=== PATIENT | female | born 1970 | race Hispanic/Latino ===

== ENCOUNTER → 2023-05-04 | Emergency (ER) | payer SELFPAY ==
[~2023-05-04] MED LIST: FLUORESCEIN SODIUM 1 MG/WRAP ONE; NA CHLORIDE 0.9% 1,000 ML ONE; TETRACAINE HCL 0.5% 4ML OPTH ONE
--- NOTE | 2023-05-04 17:11 | ER ---
Nurse's Notes [facility] Name: Renetta Crocker Age: 52 yrs Sex: Female : 1970 Arrival Date: 05/04/2023 Time: 16:22 Bed 18 Private MD: Diagnosis: Chemical Exposure to eye- right eye;Chemical Conjunctivitis right eye Presentation: 05/04 16:39 Chief complaint: Patient states: Splashed Fabuloso in R eye while cleaning, reports ph burning and blurred vision. Coronavirus screen: Vaccine status: Patient reports being unvaccinated. Ebola Screen: No symptoms or risks identified at this time. Initial Sepsis Screen: Does the patient meet any 2 criteria? No. Patient's initial sepsis screen is negative. Does the patient have a suspected source of infection? No. Patient's initial sepsis screen is negative. Risk Assessment: Do you want to hurt yourself or someone else? Patient reports no desire to harm self or others. Onset of symptoms was May 04, 2023. 16:39 Method Of Arrival: Ambulatory ph 16:39 Acuity: RACHELE 4 ph Triage Assessment: 16:47 General: Appears uncomfortable, Behavior is cooperative. Pain: Complains of pain in tl4 right eye. EENT: Reports pain in right eye. EENT: Eyes are tearing on right outer canthus, outer aspect of conjuctiva of right eye, iris of right eye, inner aspect of conjuctiva of right eye and right inner canthus. Neuro: No deficits noted. Denies weakness dizziness. Cardiovascular: No deficits noted. Denies chest pain, lightheadedness, palpitations. Respiratory: No deficits noted. Denies cough, shortness of breath. GI: No deficits noted. No signs and/or symptoms were reported involving the gastrointestinal system. : No deficits noted. No signs and/or symptoms were reported regarding the genitourinary system. Derm: No deficits noted. No signs and/or symptoms reported regarding the dermatologic system. Musculoskeletal: No deficits noted. No signs and/or symptoms reported regarding the musculoskeletal system. 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 - Social history:: Smoking status: Patient denies any tobacco usage or history of. Screenin:50 [facility] ED Fall Risk Assessment (Adult) History of falling in the last 3 months, tl4 including since admission No falls in past 3 months (0 pts) Confusion or Disorientation No (0 pts) Intoxicated or Sedated No (0 pts) Impaired Gait No (0 pts) Mobility Assist Device Used No (0 pt) Altered Elimination No (0 pt) Score/Fall Risk Level 0 - 2 = Low Risk Oriented to surroundings, Maintained a safe environment, Educated pt \T\ family on fall prevention, incl call for assistance when getting out of bed, Assessed \T\ reinforced patient's understanding of fall precautions, Provided non-skid footwear, Hourly rounding (assess needs \T\ fall precautionary measures) done, Used ambulatory aids as needed (educated on \T\ assisted with), Used gait belt as appropriate. Abuse screen: Denies threats or abuse. Denies injuries from another. Nutritional screening: No deficits noted. Tuberculosis screening: No symptoms or risk factors identified. Assessment: 16:44 Reassessment: Contacted poison control , recommended 15 minutes eye irrigation, ph re-evaluate and if still experiencing burning, photophobia or blurred follow up w/ communications editor , case # [id number]. 16:49 Reassessment: No changes from previously documented assessment. Patient and/or family tl4 updated on plan of care and expected duration. Pain level reassessed. Patient is alert, oriented x 3, equal unlabored respirations, skin warm/dry/pink. Vital Signs: 16:39 BP 103 / 63; Pulse 78; Resp 18; Temp 97.9; Pulse Ox 98% on R/A; Weight 86.18 kg; Height ph 4 ft. 8 in. ; 16:49 BP 128 / 72; Pulse 82; Resp 20; Pulse Ox 100% ; tl4 17:33 BP 122 / 75; Pulse 59; Resp 16; Pulse Ox 99% on R/A; Pain 0/10; tl4 16:39 Body Mass Index 42.60 (86.18 kg, 142.24 cm) ph 17:33 Pain Scale: Adult tl4 Visual Acuity: 17:33 Left Eye Visual acuity 20/50, Pupil size 3 mm, Normal, Brisk, React To Light, Reactive tl4 To Accomodation; Right Eye Visual acuity 20/40, Pupil size 3 mm, Normal, Brisk, React To Light, Reactive To Accomodation; Both Eyes Visual acuity 20/30; Without Lenses; Pt states she is supposed to wear corrective lenses but does not currently wear them Stevenson Coma Score: 16:49 Eye Response: spontaneous(4). Motor Response: obeys commands(6). Verbal Response: tl4 oriented(5). Total: 15. ED Course: 16:24 Patient arrived in ED. mr 16:27 Richard Mendez DO is Attending Physician. ms3 16:40 Triage completed. ph 16:42 Arm band placed on. ph 16:46 Edwar Malone RN is Primary Nurse. tl4 16:51 Patient has correct armband on for positive identification. Placed in gown. Bed in low tl4 position. Call light in reach. Side rails up X 1. Adult w/ patient. Provided Education on: eye irrigation. Client placed on continuous cardiac and pulse oximetry monitoring. NIBP monitoring applied. Door closed. Noise minimized. Lights dimmed. Moved to private room. Warm blanket given. 16:51 Assist provider with eye exam Performed by Richard Mendez DO. tl4 17:09 Steven Rodriguez MD is Referral Physician. ms3 17:35 Patient did not have IV access during this emergency room visit. tl4 Administered Medications: 17:21 Drug: Tetracaine Ophthalmic Drops 0.5 % 1 drops Ophthalmic once {Note: administered by tl4 Dr Mendez.} Route: Ophthalmic; Site: right eye; 17:21 Follow up: Response: No adverse reaction tl4 17:21 Drug: Fluorescein Ophthalmic Strip 1 strip Ophthalmic once {Note: administered by Dr elvira Barrios} Route: Ophthalmic; Site: right eye; 17:21 Follow up: Response: No adverse reaction tl4 Medication: 16:50 VIS not applicable for this client. tl4 Outcome: 17:11 Discharge ordered by . ms3 17:35 Discharged to home ambulatory, tl4 17:35 Condition: stable 17:35 Discharge instructions given to patient, Instructed on discharge instructions, follow up and referral plans. Demonstrated understanding of instructions, follow-up care, 17:36 Patient left the ED. tl4 Signatures: Pamella Squires, Aleksey Reg Jessenia Salinas RN RN Richard Mendez DO DO ms3 Edwar Malone RN RN tl4 Corrections: (The following items were deleted from the chart) 16:56 16:49 BP 109 / 68; Pulse 82bpm; Resp 20bpm; Pulse Ox 100%; tl4 tl4
--- NOTE | 2023-05-04 17:11 | EDPHYS ---
Physician Documentation [facility] Name: Renetta Crocker Age: 52 yrs Sex: Female : 1970 Arrival Date: 05/04/2023 Time: 16:22 Bed 18 Private MD: ED Physician Richard Mendez HPI: 05/04 16:56 This 52 yrs old Female presents to ER via Ambulatory with complaints of ms3 Chemical Exposure In Eye. 16:56 52-year-old female with no past medical history presents to the emergency department ms3 for fabulous that splashed into her right eye approximate 20 minutes prior to arrival. Patient states the pain is a 5/10 located in her right eye. Patient flushed her eye with warm and cold water and placed refresh eyedrops in her eye prior to arrival.. 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 - Social history:: Smoking status: Patient denies any tobacco usage or history of. ROS: 16:56 Constitutional: Negative for fever, and chills. ms3 16:56 Cardiovascular: Negative for chest pain, and palpitations. Respiratory: Negative for shortness of breath, cough, wheezing, and pleuritic chest pain, Abdomen/GI: Negative for abdominal pain, nausea, vomiting, diarrhea, and constipation, MS/Extremity: Negative for injury and deformity, Skin: Negative for injury, rash, and discoloration, 16:56 Eyes: Positive for blurry vision, pain, Exam: 16:56 Constitutional: This is a well developed, well nourished patient who is awake, alert, ms3 and in no acute distress. Head/Face: Normocephalic, atraumatic. Neck: Trachea midline, no cervical lymphadenopathy. Supple, full range of motion without nuchal rigidity, or vertebral point tenderness. No Meningismus. Chest/axilla: Normal chest wall appearance and motion. Nontender with no deformity. Cardiovascular: Regular rate and rhythm with a normal S1 and S2. No gallops, murmurs, or rubs. Normal PMI, no JVD. No pulse deficits. Respiratory: Lungs have equal breath sounds bilaterally, clear to auscultation and percussion. No rales, rhonchi or wheezes noted. No increased work of breathing, no retractions or nasal flaring. Abdomen/GI: Soft, non-tender, with normal bowel sounds. No distension or tympany. No guarding or rebound. No evidence of tenderness throughout. Skin: Warm, dry with normal turgor. Normal color with no rashes, no lesions, and no evidence of cellulitis. MS/ Extremity: Pulses equal, no cyanosis. Neurovascular intact. Full, normal range of motion. 16:56 Eyes: Periorbital structures: appear normal, Pupils: no acute changes, Extraocular movements: no acute changes, Conjunctiva: injected, in the right eye, Corneas: are normal, abrasion, is not appreciated, foreign body, is not appreciated, a fluorescein strip employed to appreciate the findings, Vital Signs: 16:39 BP 103 / 63; Pulse 78; Resp 18; Temp 97.9; Pulse Ox 98% on R/A; Weight 86.18 kg; Height ph 4 ft. 8 in. ; 16:49 BP 128 / 72; Pulse 82; Resp 20; Pulse Ox 100% ; tl4 17:33 BP 122 / 75; Pulse 59; Resp 16; Pulse Ox 99% on R/A; Pain 0/10; tl4 16:39 Body Mass Index 42.60 (86.18 kg, 142.24 cm) ph 17:33 Pain Scale: Adult tl4 Marc Coma Score: 16:49 Eye Response: spontaneous(4). Motor Response: obeys commands(6). Verbal Response: tl4 oriented(5). Total: 15. Visual Acuity: 17:33 Left Eye Visual acuity 20/50, Pupil size 3 mm, Normal, Brisk, React To Light, Reactive tl4 To Accomodation; Right Eye Visual acuity 20/40, Pupil size 3 mm, Normal, Brisk, React To Light, Reactive To Accomodation; Both Eyes Visual acuity 20/30; Without Lenses; Pt states she is supposed to wear corrective lenses but does not currently wear them Procedures: 16:56 Eye irrigation of right eye w/ Dewayne lens with 1 liter normal saline, Patient ms3 tolerated well. MDM: 16:56 Patient medically screened. ms3 16:56 Differential diagnosis: Corneal abrasion of right eye. Corneal ulcer of right eye. ms3 Chemical burn. Data reviewed: vital signs, nurses notes, and as a result, I will discharge patient. I considered the following discharge prescriptions or medication management in the emergency department Medications were administered in the Emergency Department. See MAR. Counseling: I had a detailed discussion with the patient and/or guardian regarding the historical points, exam findings, and any diagnostic results supporting the discharge/admit diagnosis, the need for outpatient follow up, to return to the emergency department if symptoms worsen or persist or if there are any questions or concerns that arise at home. Special discussion: I discussed with the patient/guardian in detail that at this point there is no indication for admission to the hospital. It is understood, however, that if the symptoms persist or worsen the patient needs to return immediately for re-evaluation. Administered Medications: 17:21 Drug: Tetracaine Ophthalmic Drops 0.5 % 1 drops Ophthalmic once {Note: administered by shad4 Dr Mendez.} Route: Ophthalmic; Site: right eye; 17:21 Follow up: Response: No adverse reaction tl4 17:21 Drug: Fluorescein Ophthalmic Strip 1 strip Ophthalmic once {Note: administered by Dr elvira Mendez.} Route: Ophthalmic; Site: right eye; 17:21 Follow up: Response: No adverse reaction tl4 Disposition Summary: 05/04/23 17:11 Discharge Ordered Notes: Location: Home ms3 Condition: Stable ms3 Diagnosis - Chemical Exposure to eye- right eye ms3 - Chemical Conjunctivitis right eye ms3 Followup: ms3 - With: Steven Rodriguez MD - When: 2 - 3 days - Reason: Recheck today's complaints Discharge Instructions: - Discharge Summary Sheet ms3 - Chemical Conjunctivitis, Adult, [id number] ms3 Forms: - Medication Reconciliation Form ms3 - Thank You Letter ms3 - Antibiotic Education ms3 - Prescription Opioid Use ms3 - Patient Portal Instructions ms3 - Leadership Thank You Letter ms3 Signatures: Jessenia Salinas, RN RN Richard Spears DO DO ms3 Edwar Malone RN RN tl4
[2023-05-04 17:49] VITALS: BP 122/75; TEMP 97.9; O2SAT 99
== END ==
LOC: ER 16:22
DX: H10.211 Acute toxic conjunctivitis, right eye (principal)
CPT/HCPCS: J7030